=== PATIENT | female | born 1960 | race Caucasian/White ===

== ENCOUNTER 2021-05-01 13:38 | Emergency (ER) | payer MEDICARE, OTHER ==
[2021-05-01 15:04] LABS: BASOPHIL 0.8 % (0-2); EOSINOPHIL 2.4 % (0-5); HCT 44.2 % (37.0-47.0); HGB 13.4 g/dl (12.5-16.0); LYMPHOCYTE 38.5 % (15-48); MCH 23.7 pg (25.0-31.0); MCHC 30.3 g/dL (32.0-36.0); MCV 78.1 fL (78.0-100.0); MONOCYTE 6.5 % (0-12); MPV 9.8 fL (6.0-9.5); NEUTROPHIL 51.5 % (41-80); NRBC 0; PLT 359 K/uL (150-400); RBC 5.66 M/uL (4.20-5.40); RDW 15.6 % (11.5-14.0); WBC 10.3 K/uL (4.0-10.5)
[2021-05-01 15:21] LABS: CORONAVIRUS 2019 SARS-COV-2 NEGATIVE (NEGATIVE); INFLUENZA A NAA NEGATIVE (NEGATIVE)
[2021-05-01 15:26] LABS: ALBUMIN 3.7 g/dL (3.4-5.0); BILIRUBIN - TOTAL 0.7 mg/dL (0.2-1.0); BUN/CREAT RATIO (CALC) 22.4 RATIO; CREATININE 0.76 mg/dL (0.51-0.95); GLOBULIN (CALCULATION) 3.2 g/dL; POTASSIUM 4.6 mmol/L (3.5-5.1); TOTAL PROTEIN 6.9 g/dL (6.4-8.2)
[2021-05-01 15:37] LABS: LACTIC ACID 0.8 mmol/L (0.4-1.9)
[2021-05-01 15:39] LABS: BILIRUBIN NEGATIVE (NEGATIVE); BLOOD NEGATIVE Ery/uL (NEGATIVE); CLARITY CLEAR (CLEAR); COLOR YELLOW (YELLOW); GLUCOSE (U) NORMAL (NORMAL); LEUKOCYTES NEGATIVE Leu/uL (NEGATIVE); NITRITE NEGATIVE (NEGATIVE); PROTEIN NEGATIVE (NEGATIVE); SPECIFIC GRAVITY 1.015 (1.001-1.030); UROBILINOGEN 0.2 mg/dL (0.2-1.0); pH 6.5 (5.0-9.0)
[2021-05-01] MEDS ORDERED: VIBRAMYCIN100 MG PO (16:31)
== END 2021-05-01 17:00 | disposition home or self-care (01) ==
LOC: FER 13:38
PROVIDERS: Nurse Practitioner Family
DX: J18.9 Pneumonia, unspecified organism (principal); J45.909 Unspecified asthma, uncomplicated; E11.9 Type 2 diabetes mellitus without complications; Z20.822 Contact with and (suspected) exposure to COVID-19; Z88.1 Allergy status to other antibiotic agents; Z88.5 Allergy status to narcotic agent; Z88.8 Allergy status to other drugs, medicaments and biological substances; Z79.4 Long term (current) use of insulin
CPT/HCPCS: 36415; 36600; 71045; 80053; 81003; 82728; 82803; 83605; 84145; 85025; 85379; J2405; J7030; U0002